=== PATIENT | male | born 1995 | race Caucasian/White ===

== ENCOUNTER → 2022-06-19 07:19 | Outpatient (CLI) | payer OTHER, MEDICAID, SELFPAY ==
--- NOTE | 2022-06-19 | DI.ECHO.S_ITS ---
[facility]---------+ [facility] +---------+ : : [address] : : : : [id number] : : : : Phone: [phone]---------+ Echocardiogram Report + + :Name: PAULA BARBOZA Study Date: 06/19/2022 Height: 75 in : :[facility] ReadingLocation: Weight: 285 lb : : Gender: Male BSA: 2.6 m2 : :: 1995 Age: 27 yrs BP: 145/86 mmHg: :Reason For Study: Palpitations : :Ordering Physician: Soumya : :Xu Performed By: Iram Manley : :Referring: SOUMYA MCNAIR E : + + Interpretation Summary The ejection fraction is estimated to be 55-60%. Diastolic parameters suggest probable normal left ventricular diastolic function and normal filling pressures. The right ventricle is normal in size and function. No significant valvular abnormalities. Unable to estimate PASP. Procedure: A two-dimensional transthoracic echocardiogram with color flow and Doppler was performed. The study quality was technically adequate. The patient was in sinus rhythm with heart rates between 65-99 bpm during the exam. The patient had frequent PVCs during the exam. Left Ventricle: The left ventricle is normal in size and wall thickness. The ejection fraction is estimated to be 55-60%. Diastolic parameters suggest probable normal left ventricular diastolic function and normal filling pressures. Right Ventricle: The right ventricle is normal in size and function. Atria: The left atrial size is normal. Right atrial size is normal. There is no Doppler evidence for an interatrial shunt. Mitral Valve: The mitral valve is normal in structure but abnormal in function. There is trace mitral regurgitation. Aortic Valve: The aortic valve opens well. There is no aortic valve stenosis. No aortic regurgitation is present. Tricuspid Valve: The tricuspid valve is normal in structure and function. There is a trace or physiologic amount of tricuspid regurgitation. Pulmonary artery pressures cannot be estimated because of the lack of a measurable TR jet velocity. Pulmonic Valve: The pulmonic valve is not well visualized. There is no pulmonic valvular regurgitation. Great Vessels: The aortic root is normal size. The ascending aorta is normal in size. The pulmonary is not well visualized. The IVC is dilated (diameter is greater than 2.1 cm) yet it collapses greater than 50% with a sniff. This suggests a right atrial pressure of 8 mm Hg. Pericardium/ Pleura There is no pericardial effusion. There is an anterior echo-free space consistent with a fat pad. There is no pleural effusion. MMode/2D Measurements & Calculations LVIDd: 4.3 cm LVOT diam: 2.3 cm LVIDs: 3.2 cm Ao root diam: 3.1 cm FS: 25.6 % asc Aorta Diam: 3.3 cm EPSS: 0.70 cm IVSd: 0.90 cm LVPWd: 0.90 cm LV barroso. diameter/BSA (cm/m^2): 1.7 LV sys. diameter/BSA (cm/m^2): 1.3 LA dimension: 3.6 cm RA long axis: 4.3 cm LA A2 area: 19.5 cm2 RA area: 14.9 cm2 LA A4 area: 19.8 cm2 RA vol: 44.2 ml LA length (vol): 5.2 cm RA : 17.3 ml/m2 LA vol: 63.5 ml IVC diam: 2.5 cm LA vol index: 24.9 ml/m2 RVD1 (basal): 3.7 cm LVLs ap4: 6.2 cm LVLd ap2: 7.8 cm TAPSE_phl: 2.7 cm LVLs ap2: 6.9 cm Doppler Measurements & Calculations Ao V2 max: 125.0 cm/sec LVOT Max Francisco J: 101.0 cm/sec Ao V2 mean: 85.4 cm/sec LV V1 max P.1 mmHg Ao max P.0 mmHg LV V1 VTI: 17.2 cm Ao mean P.0 mmHg DIGNA(I,D): 3.4 cm2 Ao V2 VTI: 20.9 cm DIGNA(V,D): 3.4 cm2 sev ratio: 0.82 DIGNA indexed to BSA (cm^2/m^2): 1.3 MV E max francisco j: 87.5 cm/sec TR max francisco j: 227.0 cm/sec MV A max francisco j: 61.4 cm/sec TR max P.6 mmHg MV E/A: 1.4 PA V2 max: 105.0 cm/sec Med Peak E' Francisco J: 12.6 cm/sec PA V2 mean: 79.8 cm/sec E/E' med: 6.9 PA mean P.0 mmHg Lat Peak E' Francisco J: 15.0 cm/sec E/E' lat: 5.8 E/e' average: 6.4 MV dec time: 0.17 sec MVA(VTI): 3.2 cm2 MV V2 mean: 67.0 cm/sec SV(LVOT): 71.5 ml MV mean P.0 mmHg MV V2 VTI: 22.0 cm AV VR_phl: 0.81 MV P1/2t-pr_phl: 50.0 msec DIGNA(VTI)/BSA_phl: 1.3 Reading Physician:08:41 PM
--- NOTE | 2022-06-20 02:50 | DI.NM.S_ITS ---
DATE OF SERVICE: 06/19/2022 PROCEDURE PERFORMED: Exercise treadmill stress test without imaging. ORDERING PROVIDER: Soumya Mcnair M.D. INDICATIONS: The patient is a 27-year-old obese male with exertional palpitations, chest discomfort, and history of PVCs. FINDINGS: 1. The patient was able to exercise for 9 minutes 33 seconds on a standard Alonzo protocol suggesting moderate-severely reduced exercise capacity with an RASTA of +35%, achieving 10.1 METs, limited by dyspnea, leg tightness, and fatigue. 2. He had a normal heart rate response to exercise, achieving a maximum heart rate of 191 BPM (98% of his predicted maximum). He had a borderline hypertensive blood pressure response with a resting blood pressure 142/80 that increased to a maximum of 200/90. 3. He had no chest discomfort or other anginal symptoms. 4. His resting ECG shows sinus rhythm with rare PVCs and normal ST segments. There are no significant ST-segment shifts or arrhythmias with stress although with occasional PVCs in recovery, yet no complex ventricular ectopy. IMPRESSION: 1. Normal exercise stress test for ischemia. 2. Moderate-severely reduced exercise capacity without angina but a borderline hypertensive blood pressure response to exercise and occasional isolated PVCs. Jamison Salcedo - RS/fanny/radha doc#: [id number]/job#: [id number] dd: 06/19/2022 17:12:00 dt: 06/20/2022 02:44:00 DICTATING /COPIES TO: Adriel Zamarripa MD; Soumya Mcnair M.D. COPIES MNE: AYO;
== END ==
PROVIDERS: Referring Provider Internal Medicine Cardiovascular Disease; Visit Provider Internal Medicine Cardiovascular Disease
DX: R00.2 Palpitations (principal); E66.9 Obesity, unspecified; R07.89 Other chest pain
CPT/HCPCS: 93017; 93306